=== PATIENT | female | born 1965 | race Caucasian/White ===

== ENCOUNTER → 2020-10-05 | Outpatient (CLI) | payer OTHER | LOC: RAD 11:28 | PROVIDERS: ATTEND Nurse Practitioner | DX: M25.551 Pain in right hip (principal); R10.9 Unspecified abdominal pain; M54.10 Radiculopathy, site unspecified; R19.5 Other fecal abnormalities ==

== ENCOUNTER → 2020-11-15 | Outpatient (CLI) | payer OTHER | LOC: BC 10:03 | PROVIDERS: ATTEND Nurse Practitioner | DX: Z12.31 Encounter for screening mammogram for malignant neoplasm of breast (principal) ==